=== PATIENT | male | born 1955 | race American Indian/Alaskan Native ===

== ENCOUNTER 2017-02-07 00:40 | Emergency (ER) | payer BC, MEDICARE ==
[2017-02-07] MEDS ORDERED: NACL 0.9% 500 ML 500 ML IV ONE (01:07)
[2017-02-07 01:45] LABS: Basophils % (Auto) 1.4 % (0.0-1.8); Eosinophils % (Auto) 3.3 % (0.0-4.3); Hematocrit 45.8 % (35.5-45.6); Mean Corpuscular HGB Conc 33 % (32-34); Mean Corpuscular Hemoglobin 29 pg (28-32); Mean Corpuscular Volume 88 fl (84-94); Platelet Count 301 K/mm3 (140-440); Red Blood Count 5.18 M/mm3 (3.65-5.03); White Blood Count 6.2 K/mm3 (4.5-11.0)
[2017-02-07 01:53] LABS: INR 0.91 (0.87-1.13)
[2017-02-07 02:08] LABS: Alanine Aminotransferase 51 units/L (7-56); Albumin 4.3 g/dL (3.9-5); Albumin/Globulin Ratio 1.4 %; Alkaline Phosphatase 62 units/L (35-129); Anion Gap 21 mmol/L; BUN/Creatinine Ratio 14.44; Blood Urea Nitrogen 13 mg/dL (9-20); Calcium 8.9 mg/dL (8.4-10.2); Carbon Dioxide 22 mmol/L (22-30); Chloride 99.3 mmol/L (98-107); Glucose 130 mg/dL (75-100); Sodium 138 mmol/L (137-145); Total Protein 7.3 g/dL (6.3-8.2)
[2017-02-07 03:09] LABS: Bilirubin,Urine NEG (Negative); Blood,Urine NEG (Negative); Ketones,Urine NEG (Negative); Leukocyte Esterase,Urine NEG (Negative); Mucus,Urine FEW /HPF; Nitrite,Urine NEG (Negative); Protein,Urine <15 mg/dL mg/dL (Negative); Urobilinogen,Urine < 2.0 mg/dL (<2.0); WBC,Urine < 1.0 /HPF (0.0-6.0)
[2017-02-07] MEDS ORDERED: ZOFRAN IV ONE (07:36)
[2017-02-07] MEDS ORDERED: MORPHINE IV ONE (07:36)
--- NOTE | 2017-02-07 08:03 | Emergency Department Report ---
HPI - General Chief Complaint: Pain General Time Seen by Provider: 02/07/17 06:53 - HPI HPI: The patient is a 61-year-old male who presents for evaluation of back and hip pain. The patient has a history of recent diagnosis of shingles. The patient states that he believes his pain is secondary to continue pain from her symptoms. He states that his pain has been constant and present for the past 3 weeks, 10/10 in severity, burning and sharp in quality, radiating from the lower back/buttocks, radiating into the proximal posterior left thigh. She states that his sugars rash is improving. ED Past Medical Hx - Past Medical History Previous Medical History?: Yes Hx Heart Attack/AMI: No Hx Diabetes: Yes Hx Arthritis: Yes Hx HIV: No - Surgical History Past Surgical History?: Yes Additional Surgical History: knee and wrist surgery - Social History Smoking Status: Current Every Day Smoker Substance Use Type: Alcohol - Medications Home Medications: Home Medications Medication Instructions Recorded Confirmed Last Taken Type Acyclovir [Zovirax Tab] 400 mg PO TID #30 tab 02/07/17 Unknown Rx Aspirin [Adult Low Dose Aspirin EC] 81 mg PO DAILY 02/07/17 02/07/17 Unknown History Atorvastatin (Nf) [Lipitor] 20 mg PO QHS 02/07/17 02/07/17 Unknown History Gabapentin [Neurontin] 300 mg PO BID 02/07/17 02/07/17 Unknown History Gabapentin [Neurontin] 600 mg PO Q8H 02/07/17 02/07/17 Unknown History HYDROcodone/APAP 5-325 [Trego 1 each PO Q6HR PRN #15 tablet 02/07/17 Unknown Rx 5/325] Sitagliptin Phos/Metformin HCl 1 each PO DAILY 02/07/17 02/07/17 Unknown History [Janumet 50-1,000 mg Tablet] ED Review of Systems ROS: Stated complaint: LEFT LEG/FOOT PAIN Other details as noted in HPI Constitutional: denies: fever ENT: denies: throat or neck pain Respiratory: denies: cough, shortness of breath Cardiovascular: denies: chest pain Endocrine: denies unexplained weight loss or gain Gastrointestinal: denies: abdominal pain, nausea Genitourinary: denies: dysuria Musculoskeletal: reports back/leg pain denies: leg swelling Skin: reports rash Neurological: denies: headache Hematological/Lymphatic: denies: easy bleeding or easy bruising Psych: denies sadness or hopelessness Physical Exam - Physical Exam Vital Signs: Vital Signs 02/07/17 02/07/17 02/07/17 01:04 05:02 05:10 Temperature 99.1 F Pulse Rate 108 H Respiratory 22 Rate Blood Pressure 114/66 Blood Pressure 137/83 [Right] O2 Sat by Pulse 100 98 99 Oximetry 02/07/17 02/07/17 02/07/17 05:13 05:20 05:30 Temperature 98.1 F Pulse Rate 84 Respiratory 18 Rate Blood Pressure 114/65 122/67 Blood Pressure 114/66 [Right] O2 Sat by Pulse 95 98 99 Oximetry 02/07/17 02/07/17 02/07/17 05:40 05:50 06:00 Temperature Pulse Rate Respiratory Rate Blood Pressure 122/67 124/68 124/64 Blood Pressure [Right] O2 Sat by Pulse 99 98 98 Oximetry 02/07/17 02/07/17 02/07/17 06:10 06:20 06:30 Temperature Pulse Rate Respiratory Rate Blood Pressure 124/64 115/65 133/69 Blood Pressure [Right] O2 Sat by Pulse 97 98 97 Oximetry Physical Exam: General: well-nourished, well-developed, no acute distress Head: Normocephalic, atraumatic Eyes: normal sclera ENT: Mucous membranes are pale and dry Neck: trachea midline, neck supple, No neck stiffness, no cervical adenopathy Respiratory: Breath sounds equal bilaterally, no wheezing, rales, or rhonchi Cardio: S1 and S2 present, no murmurs, rubs, gallops, capillary refill is delayed Abdomen: Normoactive bowel sounds, soft abdomen, no rigidity, no guarding or rebound tenderness Musc: Healing vesicular rash primarily scabbed over, presents to the left buttock's and proximal posterior left thigh, 10 to palpation, no redness, no surrounding warmth, fluctuance, crepitus, distal sensation and motor function secondary less bilaterally, no midline thoracic or lumbar spinous tenderness to palpation, showed a raise test negative bilaterally, reflexes 2+ and symmetric on DTR testing of the legs bilaterally, No pitting edema in the legs Skin: No rash Neuro: no facial drooping, normal speech Psych: Normal affect ED Course Vital Signs 02/07/17 02/07/17 02/07/17 01:04 05:02 05:10 Temperature 99.1 F Pulse Rate 108 H Respiratory 22 Rate Blood Pressure 114/66 Blood Pressure 137/83 [Right] O2 Sat by Pulse 100 98 99 Oximetry 02/07/17 02/07/17 02/07/17 05:13 05:20 05:30 Temperature 98.1 F Pulse Rate 84 Respiratory 18 Rate Blood Pressure 114/65 122/67 Blood Pressure 114/66 [Right] O2 Sat by Pulse 95 98 99 Oximetry 02/07/17 02/07/17 02/07/17 05:40 05:50 06:00 Temperature Pulse Rate Respiratory Rate Blood Pressure 122/67 124/68 124/64 Blood Pressure [Right] O2 Sat by Pulse 99 98 98 Oximetry 02/07/17 02/07/17 02/07/17 06:10 06:20 06:30 Temperature Pulse Rate Respiratory Rate Blood Pressure 124/64 115/65 133/69 Blood Pressure [Right] O2 Sat by Pulse 97 98 97 Oximetry ED Medical Decision Making - Lab Data Result diagrams: 02/07/17 01:15 02/07/17 01:15 - Medical Decision Making The patient was seen and examined by myself. The patient is placed on a youth nutritional monitor and continuous pulse ox. On initial evaluation, the patient was found to be in no distress. Evaluation orders were placed. The patient is given 1 L normal saline fluid bolus for treatment of dehydration and an IV dose of morphine for his pain. Lab results are grossly not concerning. The patient was reevaluated and reported that their symptoms were markedly improved. The patient is stable for discharge with outpatient follow-up. The patient is given follow-up and return instructions. The patient expressed understanding and agreed with the plan. The patient is discharged in stable condition. Critical care attestation.: If time is entered above; I have spent that time in minutes in the direct care of this critically ill patient, excluding procedure time. ED Disposition Clinical Impression: Acute pain of left lower extremity, Dehydration Shingles Qualifiers: Herpes zoster complications: without complications Qualified Code(s): B02.9 - Zoster without complications Disposition: DISCHARGED TO HOME OR SELFCARE Is pt being admited?: No Does the pt Need Aspirin: No Condition: Stable Instructions: Herpes Zoster (ED), Musculoskeletal Pain (ED) Prescriptions: Acyclovir [Zovirax Tab] 400 mg PO TID #30 tab HYDROcodone/APAP 5-325 [Trego 5/325] 1 each PO Q6HR PRN #15 tablet PRN Reason: Pain Referrals: PRIMARY CARE, [Primary Care Provider] - 3-5 Days Time of Disposition: 07:48
--- NOTE | 2017-02-07 09:12 | XRay Report ---
Single view chest: Compared to 09/23/14. History: Sepsis. The Findings: Normal cardiomediastinal silhouette. Trachea is midline. No consolidation, pneumothorax or pleural effusion. Impression: No acute cardiopulmonary findings.
[2017-02-07 09:24] VITALS: BP 109/65
== END 2017-02-07 09:41 | disposition home or self-care (01) ==
LOC: ED 00:40
DX: M25.552 Pain in left hip (principal); M54.9 Dorsalgia, unspecified; E86.0 Dehydration; B02.9 Zoster without complications; F17.200 Nicotine dependence, unspecified, uncomplicated; E11.9 Type 2 diabetes mellitus without complications; M19.90 Unspecified osteoarthritis, unspecified site; Z79.82 Long term (current) use of aspirin; Z98.890 Other specified postprocedural states
CPT/HCPCS: 36415; 71010; 80053; 81001; 82140; 82805; 85025; 85610; 87040; 87086; 93005; 93010; 96374; 96375; 99284; J2270; J2405

== ENCOUNTER 2017-03-31 11:36 | Outpatient (CLI) | payer MEDICARE ==
--- NOTE | 2017-03-31 16:25 | Cat Scan Report ---
CT CHEST, ABDOMEN AND PELVIS WITHOUT CONTRAST: 03/31/17 11:36:00 CLINICAL: Weight loss and night sweats. COMPARISON: CT Chest 11/05/14 TECHNIQUE: Volumetric acquisition and 1.25 millimeter scan reconstructions without IV or oral contrast. FINDINGS: Chest: The lungs are clear. No pulmonary nodule or mass. No airspace disease or pleural effusion. Normal heart, aorta and pulmonary vessels. Normal esophagus and trachea. No lymphadenopathy. Abdomen: Normal liver, gallbladder and bile ducts. Normal stomach, duodenum, pancreas and spleen. Normal adrenal glands. A 2.2 cm right lower pole renal cyst and otherwise normal kidneys. The renal collecting systems and ureters are nondilated. Normal aorta and inferior vena cava. No retroperitoneal lymphadenopathy.No ascites and no pneumoperitoneum.The small bowel is normal. Mild diverticulosis of the colon and no diverticulitis. The appendix is normal. Pelvis: Normal urinary bladder. The wall of the proximal 3 cm of the rectum is mildly thickened and measures 5 mm. There is a short stricture at the rectosigmoid junction. The prostate is enlarged and bulges into the bladder floor. It measures 6.0 x 4.6 cm. Bone windows demonstrate no suspicious bone lesion. IMPRESSION:1. Wall thickening of the proximal rectum and a short stricture at the rectosigmoid junction. Recommend further evaluation with either sigmoidoscopy or a barium study to exclude tumor. 2. Enlarged prostate. 3. Normal chest. 4. Mild diverticulosis but no diverticulitis. 5. A 2.2 cm right renal cyst.
== END 2017-03-31 11:37 | disposition home or self-care (01) ==
LOC: SPVIMAG 11:36
PROVIDERS: ATTEND Internal Medicine
DX: N28.1 Cyst of kidney, acquired (principal); R63.4 Abnormal weight loss; R61 Generalized hyperhidrosis; N40.0 Benign prostatic hyperplasia without lower urinary tract symptoms; K57.30 Diverticulosis of large intestine without perforation or abscess without bleeding; E78.00 Pure hypercholesterolemia, unspecified; J18.9 Pneumonia, unspecified organism
CPT/HCPCS: 71250; 74176